=== PATIENT | female | born 1945 | race Hispanic/Latino ===

== ENCOUNTER 2016-08-24 17:42 | Emergency (ER) | payer MEDICARE, OTHER ==
[~2016-08-24] VITALS: Ht 175.3 cm; Wt 72.6 kg
[2016-08-24 17:40] VITALS: BP 136/76
[~2016-08-24 17:42] MED LIST: AMLODIPINE BESYL5 MG PO; ASPIRIN-LOW81 MG PO; DOCUSATE SODIU100 MG PO; DOCUSIL PO; LORAZEPAM1 MG PO; PRILOSEC20 MG PO; RESTORIL7.5 MG PO; RISPERDAL2 MG PO
[2016-08-24 19:02] LABS: APPEARANCE,URINE CLEAR; KETONES,URINE NEGATIVE (NEGATIVE); LEUKOCYTE ESTERASE ,URINE NEGATIVE (NEGATIVE); NITRITE,URINE NEGATIVE (NEGATIVE); PH,URINE 7 (4.5-8.0); PROTEIN,URINE NEGATIVE (NEGATIVE); UROBILINOGEN,URINE NORMAL MG/DL (0.0-1.0)
[2016-08-24 19:13] LABS: BASOPHILS % (AUTO) 0.9 % (0.0-2.0); EOSINOPHILS % (AUTO) 1.7 % (0.0-3.0); MEAN CORPUSCULAR HEMOGLOBIN 27.8 PG (27.0-31.0); MEAN CORPUSCULAR HGB CONC 33.2 G/DL (32.0-36.0); MEAN CORPUSCULAR VOLUME 84 FL (80-99); MEAN PLATELET VOLUME 7.3 FL (6.5-10.1); MONOCYTES % (AUTO) 8.6 % (1.0-10.0); NEUTROPHILS % (AUTO) 67.9 % (45.0-75.0); PLATELET COUNT 224 K/UL (150-450); RED BLOOD COUNT 4.72 M/UL (4.20-5.40); RED CELL DISTRIBUTION WIDTH 12.1 % (11.6-14.8); WHITE BLOOD COUNT 6.5 K/UL (4.8-10.8)
[2016-08-24 19:36] LABS: ALBUMIN/GLOBULIN RATIO 0.9 (1.0-2.7); CALCIUM 8.9 mg/dL (8.6-10.2); CREATININE 1.1 mg/dL (0.5-0.9); GLOMERULAR FILTRATION RATE 49.1 mL/min (>60); TOTAL PROTEIN 7.5 g/dL (6.6-8.7)
[2016-08-24 21:19] VITALS: BP 129/78
[2016-08-24 21:25] VITALS: BP 129/78
--- NOTE | 2016-08-25 16:08 | Diagnostic Imaging Report ---
Indication:Abdominal pain Technique: Grayscale and duplex Doppler imaging of the pelvis performed. Comparison: None Findings: Clinically we understand there is a uterine prolapse. Endovaginal scan was not done as the patient cannot consent. Patient is confused and has altered level of consciousness. Neither ovary is well demonstrated but grossly unremarkable. The endometrium is measured is about 7 mm in thickness. Uterus measures 8 x 6 x 4.4 cm. Right ovary 2.7 x 2.0 0.7 cm. Left ovary 1.5 x 2.9 x 1.0 cm. Impression: Limited evaluation. Uterine prolapse diagnosed clinically.
--- NOTE | 2016-08-26 11:58 | Emergency Room Report ---
History of Present Illness General Chief Complaint: Vaginal Source: EMS (RAIMUNDO ENGEL P.A.) Present Illness HPI The pt is a 70 yo F BIBA from [facility] for vaginal cyst evaluation. The pt offers a limited history due to psychiatric history but states she has noticed bleeding and pain to the vaginal area. Pain described as a 10/10 dull ache and does not radiate. No known provoking or relieving factors. Pt is post-menopausal. Pt denies other symptoms including N, V, F, chills, dysuria, flank pain, abd pain, dizziness, CP, SOB (RAIMUNDO ENGEL P.A.) Allergies: Coded Allergies: No Known Allergies (Unverified , 08/01/12) Patient History Past Medical History: see triage record Pertinent Family History: none Last Menstrual Period: UNK Reviewed Nursing Documentation: PMH: Agreed, PSxH: Agreed (RAIMUNDO ENGEL P.A.) Nursing Documentation-PMH Hx Cardiac Problems: Yes - HYPERLIPIDEMIA Hx Hypertension: Yes Hx Pacemaker: No - HYPERLIPIDEMIA Hx Asthma: No Hx COPD: No Hx Diabetes: No Hx Cancer: No Hx Gastrointestinal Problems: Yes - GERD Hx Dialysis: No Hx Neurological Problems: Yes - NEUROPATHY Hx Cerebrovascular Accident: No Hx Seizures: No Hx Peripheral Neuropathy: Yes (RAIMUNDO ENGEL P.A.) Review of Systems All Other Systems: negative except mentioned in HPI (RAIMUNDO ENGEL P.A.) Physical Exam Vital Signs Date Time Temp Pulse Resp B/P Pulse Ox O2 Delivery O2 Flow Rate FiO2 08/24/16 17:33 77 18 136/76 95 Room Air 08/24/16 17:40 97.8 Sp02 EP Interpretation: reviewed, normal General Appearance: no apparent distress, alert, GCS 15, non-toxic Head: normocephalic, atraumatic Eyes: bilateral eye PERRL, bilateral eye normal inspection ENT: hearing grossly normal Neck: full range of motion, supple/symm/no masses Respiratory: chest non-tender, lungs clear, normal breath sounds, speaking full sentences Cardiovascular #1: regular rate, rhythm, no edema Gastrointestinal: normal bowel sounds, non tender, soft, non-distended, no guarding, no rebound Genitourinary: no CVA tenderness, other - large uterine prolapse Musculoskeletal: back normal, gait/station normal, normal range of motion, non- tender Neurologic: alert, responsive, sensory intact, normal gait, other - tardive dyskinesia Skin: normal color, no rash, warm/dry, well hydrated Lymphatic: no adenopathy (RAIMUNDO ENGEL) Medical Decision Making PA Attestation Dr. De La O is my supervising physician. Patient management was discussed with my supervising physician (RAIMUNDO ENGEL) Medicare Attestation The history of Peyton Babb has been reviewed and management options for her have been examined and discussed by Raffaele De La O. I have personally examined and interviewed the patient. (RAFFAELE DE LA O M.D.) Diagnostic Impression: Primary Impression: Uterine prolapse ER Course The pt is a 70 yo F BIBA from [facility] for vaginal cyst evaluation. DDx: UTI, abscess, vaginitis, pelvic organ prolapse PE: vitals WNL. NAD : There is a large uterine prolapse. Easily reducible. ABd is soft and non tender. No guarding. Normal BS No CVA tenderness Labs: no leukocyotis. No urinary signs of infection. No occult blood. Abd/Pelvic US: abd US unremarkable. Pelvic US limited due to prolapsed uterus. Dr. De La O has spoken with the patient's PMD and agrees with plan. Dr. De La O has also spoken with Dr. Buchanan (OBGYN). Pt will be sent back to [facility] in stable condition. Labs Test 08/24/16 18:34 White Blood Count 6.5 K/UL (4.8-10.8) Red Blood Count 4.72 M/UL (4.20-5.40) Hemoglobin 13.1 G/DL (12.0-16.0) Hematocrit 39.6 % (37.0-47.0) Mean Corpuscular Volume 84 FL (80-99) Mean Corpuscular Hemoglobin 27.8 PG (27.0-31.0) Mean Corpuscular Hemoglobin Concent 33.2 G/DL (32.0-36.0) Red Cell Distribution Width 12.1 % (11.6-14.8) Platelet Count 224 K/UL (150-450) Mean Platelet Volume 7.3 FL (6.5-10.1) Neutrophils (%) (Auto) 67.9 % (45.0-75.0) Lymphocytes (%) (Auto) 21.0 % (20.0-45.0) Monocytes (%) (Auto) 8.6 % (1.0-10.0) Eosinophils (%) (Auto) 1.7 % (0.0-3.0) Basophils (%) (Auto) 0.9 % (0.0-2.0) Prothrombin Time 10.0 SEC (9.30-11.50) Prothromb Time International Ratio 1.0 (0.9-1.1) Activated Partial Thromboplast Time 25 SEC (23-33) Urine Color Pale yellow Urine Appearance Clear Urine pH 7 (4.5-8.0) Urine Specific [place] 1.005 (1.005-1.035) Urine Protein Negative (NEGATIVE) Urine Glucose (UA) Negative (NEGATIVE) Urine Ketones Negative (NEGATIVE) Urine Occult Blood Negative (NEGATIVE) Urine Nitrite Negative (NEGATIVE) Urine Bilirubin Negative (NEGATIVE) Urine Urobilinogen Normal MG/DL (0.0-1.0) Urine Leukocyte Esterase Negative (NEGATIVE) Sodium Level 139 mEQ/L (135-145) Potassium Level 4.0 mEQ/L (3.4-4.9) Chloride Level 98 mEQ/L (98-107) Carbon Dioxide Level 25 mEQ/L (20-30) Anion Gap 16 (5-15) Blood Urea Nitrogen 12 mg/dL (7-23) Creatinine 1.1 mg/dL (0.5-0.9) Estimat Glomerular Filtration Rate 49.1 mL/min (>60) Glucose Level 155 mg/dL (74-106) Calcium Level 8.9 mg/dL (8.6-10.2) Total Bilirubin 0.4 mg/dL (0.0-1.2) Aspartate Amino Transf (AST/SGOT) 33 U/L (5-40) Alanine Aminotransferase (ALT/SGPT) 31 U/L (3-33) Alkaline Phosphatase 127 U/L (35-104) Total Protein 7.5 g/dL (6.6-8.7) Albumin 3.7 g/dL (3.5-5.2) Globulin 3.8 g/dL Albumin/Globulin Ratio 0.9 (1.0-2.7) Lipase 36 U/L (< 60) Lab Results Impression CBC: no leukocytosis. No anemia. CMP: Unremarkable. UA: No RBCs or occult blood. No signs of infection (RAIMUNDO ENGEL) CT/MRI/US Diagnostic Results CT/MRI/US Diagnostic Results : Imaging Test Ordered: Abd/Pelvic US Impression Clinically we understand there is a uterine prolapse. Endovaginal scan was not done as the patient cannot consent. Patient is confused and has altered level of consciousness. Neither ovary is well demonstrated but grossly unremarkable. The endometrium is measured is about 7 mm in thickness. Uterus measures 8 x 6 x 4.4 cm. Right ovary 2.7 x 2.0 0.7 cm. Left ovary 1.5 x 2.9 x 1.0 cm. (RAIMUNDO ENGEL) Last Vital Signs Date Time Temp Pulse Resp B/P Pulse Ox O2 Delivery O2 Flow Rate FiO2 08/24/16 21:25 97.8 97 18 129/78 99 Room Air Status: improved (RAIMUNDO ENGEL) Disposition: [facility] SN[facility] Condition: Stable Referrals: Isaiah Vasquez MD (PCP) Patient Instructions: Pelvic Organ Prolapse Additional Instructions: I discussed my findings with the patient. All questions and concerns have been answered. Treatment and medication compliance have been addressed. I advised the patient that they need to follow up with PMD in 3-5 days. Return to ED if symptoms worsen, new symptoms arise, or if needed for any reason. Patient verbalized understanding of discharge instructions. RAIMUNDO ENEGL Aug 26, 2016 11:58 RAFFAELE DE LA O M.D. Aug 28, 2016 19:03
== END 2016-08-24 21:25 ==
LOC: EDBD 17:42 → EMR 19:45
DX: N81.4 Uterovaginal prolapse, unspecified (principal); I10 Essential (primary) hypertension; E78.5 Hyperlipidemia, unspecified; K21.9 Gastro-esophageal reflux disease without esophagitis; G62.9 Polyneuropathy, unspecified
CPT/HCPCS: 36415; 76857; 80053; 81003; 83690; 85025; 85610; 85730; 99284

== ENCOUNTER 2018-10-28 12:04 | Inpatient (IN) | payer MEDICARE, OTHER ==
[~2018-10-28] VITALS: Ht 165.1 cm; Wt 90.7 kg
--- NOTE | 2018-10-28 12:24 | Emergency Room Report ---
History of Present Illness General Chief Complaint: Female Urogenital Problems Source: Medical Record, EMS Present Illness HPI Patient presents with complaints of increased discomfort in the vaginal area Patient is reported to have a previous prolapsed uterus and appears to be worsening patient herself has some underlying dementia is unable to provide full specific history otherwise denies any chest pain or short of breath denies any vomiting or diarrhea Allergies: Coded Allergies: No Known Allergies (Unverified , 08/01/12) Patient History Past Medical History: see triage record Pertinent Family History: none Last Menstrual Period: Unknown Now: No Reviewed Nursing Documentation: PMH: Agreed; PSxH: Agreed Nursing Documentation-PMH Hx Cardiac Problems: Yes - HYPERLIPIDEMIA Hx Hypertension: Yes Hx Pacemaker: No - HYPERLIPIDEMIA Hx Asthma: No Hx COPD: No Hx Diabetes: No Hx Cancer: No Hx Gastrointestinal Problems: Yes - GERD Hx Dialysis: No Hx Neurological Problems: Yes - NEUROPATHY Hx Cerebrovascular Accident: No Hx Seizures: No Hx Peripheral Neuropathy: Yes Review of Systems All Other Systems: negative except mentioned in HPI Physical Exam Vital Signs Date Time Temp Pulse Resp B/P (MAP) Pulse Ox O2 Delivery O2 Flow Rate FiO2 10/28/18 12:01 97.3 84 18 96 Nasal Cannula 2.0 Sp02 EP Interpretation: reviewed, normal General Appearance: well appearing, no apparent distress Head: normocephalic, atraumatic Eyes: bilateral eye PERRL, bilateral eye EOMI ENT: normal pharynx Neck: supple Respiratory: lungs clear, no respiratory distress, no retraction Cardiovascular #1: regular rate, rhythm Gastrointestinal: non tender, soft Genitourinary: other - Almost full prolapse of the uterus Musculoskeletal: other - Moves upper extremity without focal deficiet Neurologic: responsive Skin: normal color, no rash Lymphatic: no adenopathy Medical Decision Making Diagnostic Impression: Primary Impression: Uterine prolapse Additional Impression: Intractable pain ER Course Given the history and presentation patient has blood work initiated Ultrasound has not been ordered as the patient has clear signs of prolapse Patient also appeared uncomfortable and required acute intervention with pain medication in discussion with the patient's primary physician she will have further inpatient care and gynecology consultation Labs Test 10/28/18 12:30 White Blood Count 5.5 K/UL (4.8-10.8) Red Blood Count 4.69 M/UL (4.20-5.40) Hemoglobin 12.9 G/DL (12.0-16.0) Hematocrit 39.5 % (37.0-47.0) Mean Corpuscular Volume 84 FL (80-99) Mean Corpuscular Hemoglobin 27.6 PG (27.0-31.0) Mean Corpuscular Hemoglobin Concent 32.7 G/DL (32.0-36.0) Red Cell Distribution Width 12.8 % (11.6-14.8) Platelet Count 186 K/UL (150-450) Mean Platelet Volume 7.9 FL (6.5-10.1) Neutrophils (%) (Auto) 58.3 % (45.0-75.0) Lymphocytes (%) (Auto) 32.8 % (20.0-45.0) Monocytes (%) (Auto) 6.2 % (1.0-10.0) Eosinophils (%) (Auto) 1.7 % (0.0-3.0) Basophils (%) (Auto) 0.9 % (0.0-2.0) Prothrombin Time 10.1 SEC (9.30-11.50) Prothromb Time International Ratio 1.0 (0.9-1.1) Activated Partial Thromboplast Time 25 SEC (23-33) Sodium Level 143 MMOL/L (136-145) Potassium Level 4.0 MMOL/L (3.5-5.1) Chloride Level 107 MMOL/L (98-107) Carbon Dioxide Level 31 MMOL/L (21-32) Anion Gap 5 mmol/L (5-15) Blood Urea Nitrogen 13 mg/dL (7-18) Creatinine 1.3 MG/DL (0.55-1.30) Estimat Glomerular Filtration Rate mL/min (>60) Glucose Level 107 MG/DL (74-106) Calcium Level 8.7 MG/DL (8.5-10.1) Last Vital Signs Date Time Temp Pulse Resp B/P (MAP) Pulse Ox O2 Delivery O2 Flow Rate FiO2 10/28/18 12:01 97.3 84 18 96 Nasal Cannula 2.0 Status: improved Disposition: ADMITTED INPATIENT Condition: Serious Isaiah Koenig DO October 28, 2018 12:24
[2018-10-28] MEDS ORDERED: HYDROcodone/Acetamin 5/325 tab ORAL ONE (12:30)
[2018-10-28 12:35] VITALS: BP 110/78
--- NOTE | 2018-10-28 12:40 | NUR ---
Note undone in ED - 10/28/18 at 1523 by PINKY ED Nurse Note: Patient brought in to ER by ambulance from [facility] due to uterine prolapse. pt is awake and makeing frequent movement but unable to carry conversation. pt is making noise but not understandable. pt follows commands. pt agitated and restless. skin clean and intact. pt is on 2L/min via N/C prior to arrival. Uterine is about two fists size and outside and visible without bleeding. Addendum: 10/28/18 at 1522 by PINKY Amendment undone in ED - 10/28/18 at 1523 by PINKY ED Nurse Note: Patient brought in to ER by ambulance from [facility] due to uterine prolapse. pt is awake and makeing frequent movement but unable to carry conversation. pt is making noise but not understandable. pt follows commands. pt agitated and restless. skin clean and intact. pt is on 2L/min via N/C prior to arrival. Uterine is about two fists size and outside and visible without bleeding. Addendum: 10/28/18 at 1523 by PINKY Amendment undone in EDM - 10/28/18 at 1523 by PINKY ED Nurse Note: Patient brought in to ER by ambulance from [facility] due to uterine prolapse. pt is awake and makeing frequent movement but unable to carry conversation. pt is making noise but not understandable. pt follows commands. pt agitated and restless. skin clean and intact. pt is on 2L/min via N/C prior to arrival. Uterine is about two fists size and outside and visible without bleeding.
--- NOTE | 2018-10-28 12:50 | NUR ---
ED Nurse Note: Called to give report to 3rd floor MS unit. the room has been changed to 4E. will call 4E to give report.
[2018-10-28 12:53] LABS: BASOPHILS % (AUTO) 0.9 % (0.0-2.0); EOSINOPHILS % (AUTO) 1.7 % (0.0-3.0); HEMATOCRIT 39.5 % (37.0-47.0); HEMOGLOBIN 12.9 G/DL (12.0-16.0); LYMPHOCYTES % (AUTO) 32.8 % (20.0-45.0); MEAN CORPUSCULAR VOLUME 84 FL (80-99); MONOCYTES % (AUTO) 6.2 % (1.0-10.0); NEUTROPHILS % (AUTO) 58.3 % (45.0-75.0); PLATELET COUNT 186 K/UL (150-450); RED BLOOD COUNT 4.69 M/UL (4.20-5.40); RED CELL DISTRIBUTION WIDTH 12.8 % (11.6-14.8); WHITE BLOOD COUNT 5.5 K/UL (4.8-10.8)
[2018-10-28 12:59] LABS: ANION GAP 5 mmol/L (5-15); BLOOD UREA NITROGEN 13 mg/dL (7-18); CALCIUM 8.7 MG/DL (8.5-10.1); CARBON DIOXIDE 31 MMOL/L (21-32); CHLORIDE 107 MMOL/L (98-107); CREATININE 1.3 MG/DL (0.55-1.30); SODIUM 143 MMOL/L (136-145)
--- NOTE | 2018-10-28 13:00 | NUR ---
ED Nurse Note: called 4E to give report. they have not been informed. per Natalia, they will find out and call me back.
--- NOTE | 2018-10-28 13:19 | NUR ---
ED Nurse Note: Per ANABELLE Mcallister in MS unit the admitting nurse is not available at this moment. they will call me back.
[2018-10-28] MEDS ORDERED: QUETIAPINE FUM400 MG ORAL (13:26)
[2018-10-28] MEDS ORDERED: MACRODANTIN100 MG ORAL (13:26)
[2018-10-28] MEDS ORDERED: GABAPENTIN100 MG ORAL (13:26)
[2018-10-28] MEDS ORDERED: CRESTOR10 M1 ORAL (13:26)
[2018-10-28] MEDS ORDERED: ECONAZOLE NITRA30 GM TP (13:26)
[2018-10-28] MEDS ORDERED: MYRBETRIQ50 MG PO (13:26)
[2018-10-28] MEDS ORDERED: OLANZAPINE ODT10 MG PO (13:26)
[2018-10-28 13:31] VITALS: BP 137/69
--- NOTE | 2018-10-28 13:31 | NUR ---
ED Nurse Note: Removed NC and pt is saturating 98% in room air.
--- NOTE | 2018-10-28 13:39 | NUR ---
ED Nurse Note: Report given to ANABELLE Fisher. pt will be transferred after doctor to doctor report done.
--- NOTE | 2018-10-28 13:55 | NUR ---
ED Nurse Note: pt stable and transferred to MS unit by 1 geodetic technician.
[2018-10-28 13:57] VITALS: BP 156/95
--- NOTE | 2018-10-28 13:59 | NUR ---
NURSE NOTES: PATIENT RECEIVED A/A/O, GARBLED SPEECH. ABLE TO FOLLOW SIMPLE COMMANDS. SKIN IS INTACT. PERSONAL BELONGINGS REVIEWED AND S/T/D. UTERINE PROLAPSE IS VISIBLE BUT INTACT. ALL EXTREMITIES ARE MOBILE. WILL CALL PMD FOR ADMISSION ORDERS. KEEP BED IN THE LOWEST POSITION. SIDERAILS ARE UP AND BED ALARM ON AND LOCKED @ ALL TIMES. ADMISSION PROFILE RENDERED. WILL CONT TO MONITOR.
[2018-10-28] MEDS ORDERED: LORazepam 1mg tab ORAL PRN (14:30)
[2018-10-28 16:00] VITALS: BP 126/68
--- NOTE | 2018-10-28 16:04 | Consultation ---
History of Present Illness General Date patient seen: October 28, 2018 Reason for Hospitalization: Female Urogenital Problems Present Illness HPI This is a 72-year-old female with multiple medical comorbidities who presented with abdomen pain pelvic pain and identified in the emergency room to have a prolapsed uterus. Patient admitted for care and management which time surgery was called to evaluate and assist with care. Patient seen, patient divided, chart reviewed. With nursing staff the prolapsed uterus was reduced. Allergies: Coded Allergies: No Known Allergies (Unverified , 08/01/12) Medication History Scheduled Amlodipine Besylate* (Amlodipine Besylate*), 5 MG PO DAILY, (Reported) Aspirin (Aspirin EC), 81 MG PO DAILY, (Reported) Docusate Sodium* (Docusate Sodium*), 100 MG PO BID, (Reported) Econazole Nitrate (Econazole Nitrate), 30 GM TP BID, (Reported) Gabapentin* (Gabapentin*), 100 MG ORAL BID, (Reported) Mirabegron (Myrbetriq), 50 MG PO DAILY, (Reported) Nitrofurantoin Macrocrystal (Macrodantin), 100 MG ORAL BID, (Reported) Olanzapine (Olanzapine Odt), 10 MG PO BID, (Reported) Omeprazole (Prilosec), 20 MG PO DAILY, (Reported) Quetiapine Fumarate* (Quetiapine Fumarate*), 400 MG ORAL BEDTIME, (Reported) Risperidone* (Risperdal*), 6 MG PO QHS, (Reported) Rosuvastatin Calcium (Crestor), 5 MG ORAL DAILY, (Reported) Scheduled PRN Lorazepam* (Lorazepam*), 1 MG PO Q6HR PRN, (Reported) Temazepam* (Restoril*), 30 MG PO QHS PRN, (Reported) Patient History Limited by: medical condition History Provided By: Patient, Medical Record, PMD Healthcare decision maker Resuscitation status Full Code Advanced Directive on File Past Medical/Surgical History Past Medical/Surgical History: (1) Intractable pain (2) Uterine prolapse Review of Systems Review of Symptoms General ROS: no weight loss or fever Psychological ROS: no depression or mood changes, no memory loss Ophthalmic ROS: no visual changes or eye irritation ENT ROS: no nasal congestion, hearing loss, dizziness Allergy and Immunology ROS: no allergic symptoms or urticaria Hematological and Lymphatic ROS: no swollen glands, unusual bleeding or bruising Endocrine ROS: no polyuria, polydipsia, weight changes, temperature intolerance Respiratory ROS: no cough, shortness of breath, or wheezing Cardiovascular ROS: no chest pain or dyspnea on exertion Gastrointestinal ROS: denies abdominal pain, no bright red blood in stool. Musculoskeletal ROS: no myalgias or arthralgias Neurological ROS: no TIA or stroke symptoms Dermatological ROS: no new or changing skin lesions, rashes or pruritis Physical Exam Physical Exam General appearance: alert, cooperative, no distress, appears stated age Head: Normocephalic, without obvious abnormality, atraumatic Eyes: conjunctivae/corneas clear. PERRL, EOM's intact. Fundi benign Throat: Lips, mucosa, and tongue normal. Teeth and gums normal Neck: supple, symmetrical, trachea midline, no adenopathy, thyroid: not enlarged, symmetric, no tenderness/mass/nodules, no carotid bruit and no JVD Lungs: clear to auscultation bilaterally Heart: regular rate and rhythm, S1, S2 normal, no murmur, click, rub or gallop Abdomen: soft, non-tender. Bowel sounds normal. No masses, no organomegaly Extremities: extremities normal, atraumatic, no cyanosis or edema Pulses: 2+ and symmetric Skin: Skin color, texture, turgor normal. No rashes or lesions Neurologic: Grossly normal Large near full prolapse of uterus with dry wall noted and external OS seen. able to safely reduce at bedside. Last 24 Hour Vital Signs Date Time Temp Pulse Resp B/P (MAP) Pulse Ox O2 Delivery O2 Flow Rate FiO2 10/28/18 13:57 97.5 92 18 156/95 (115) 92 10/28/18 13:57 Room Air 10/28/18 13:55 98.5 94 18 110/74 98 Room Air 10/28/18 13:31 98.3 86 19 137/69 97 Room Air 10/28/18 12:57 98.5 10/28/18 12:35 98.5 91 16 110/78 98 Nasal Cannula 2.0 10/28/18 12:01 97.3 84 18 96 Nasal Cannula 2.0 Laboratory Tests Test 10/28/18 12:30 White Blood Count 5.5 K/UL (4.8-10.8) Red Blood Count 4.69 M/UL (4.20-5.40) Hemoglobin 12.9 G/DL (12.0-16.0) Hematocrit 39.5 % (37.0-47.0) Mean Corpuscular Volume 84 FL (80-99) Mean Corpuscular Hemoglobin 27.6 PG (27.0-31.0) Mean Corpuscular Hemoglobin Concent 32.7 G/DL (32.0-36.0) Red Cell Distribution Width 12.8 % (11.6-14.8) Platelet Count 186 K/UL (150-450) Mean Platelet Volume 7.9 FL (6.5-10.1) Neutrophils (%) (Auto) 58.3 % (45.0-75.0) Lymphocytes (%) (Auto) 32.8 % (20.0-45.0) Monocytes (%) (Auto) 6.2 % (1.0-10.0) Eosinophils (%) (Auto) 1.7 % (0.0-3.0) Basophils (%) (Auto) 0.9 % (0.0-2.0) Prothrombin Time 10.1 SEC (9.30-11.50) Prothromb Time International Ratio 1.0 (0.9-1.1) Activated Partial Thromboplast Time 25 SEC (23-33) Sodium Level 143 MMOL/L (136-145) Potassium Level 4.0 MMOL/L (3.5-5.1) Chloride Level 107 MMOL/L (98-107) Carbon Dioxide Level 31 MMOL/L (21-32) Anion Gap 5 mmol/L (5-15) Blood Urea Nitrogen 13 mg/dL (7-18) Creatinine 1.3 MG/DL (0.55-1.30) Estimat Glomerular Filtration Rate mL/min (>60) Glucose Level 107 MG/DL (74-106) H Calcium Level 8.7 MG/DL (8.5-10.1) Microbiology Date/Time Source Procedure Growth Status 10/28/18 12:20 Rectum Received Height (Feet): 5 Height (Inches): 5.00 Weight (Pounds): 200 Medications Current Medications Medications (Trade) Dose Ordered Sig/Joaquin Route PRN Reason Start Time Stop Time Status Last Admin Dose Admin Acetaminophen (Tylenol) 650 mg Q4H PRN ORAL Mild Pain/Temp > 100.5 10/28/18 14:30 11/27/18 14:29 Amlodipine Besylate (Norvasc) 5 mg DAILY ORAL 10/29/18 09:00 11/28/18 08:59 Aspirin (Ecotrin) 81 mg DAILY ORAL 10/29/18 09:00 11/28/18 08:59 Docusate Sodium (Colace) 100 mg BID ORAL 10/29/18 09:00 11/28/18 08:59 Econazole Nitrate (Spectazole) 1 applic BID TOPIC 10/28/18 18:00 11/27/18 17:59 Gabapentin (Neurontin) 100 mg BID ORAL 10/28/18 18:00 11/27/18 17:59 Lorazepam (Ativan) 1 mg Q6H PRN ORAL ANXIETY 10/28/18 14:30 11/04/18 14:29 Olanzapine (ZyPREXA Zydis) 10 mg BID ORAL 10/28/18 18:00 11/27/18 17:59 Quetiapine Fumarate (SEROquel) 400 mg BEDTIME ORAL 10/28/18 21:00 11/27/18 20:59 Risperidone (RisperDAL) 6 mg QHS ORAL 10/28/18 21:00 11/27/18 20:59 Temazepam (Restoril) 30 mg QHS PRN ORAL Insomnia 10/28/18 14:30 11/04/18 14:29 Assessment/Plan Problem List: (1) Intractable pain Assessment & Plan: Pain mainly related to discomfort in the pelvis and abdomen from prolapse. Once prolapse was reduced patient did state that she felt better. Currently no nausea or vomiting. Labs identified. Exam stable. ICD Codes: R52 - Pain, unspecified SNOMED: 21822408 (2) Uterine prolapse Assessment & Plan: Uterine prolapse status post reduction at the bedside without complication. Patient symptoms improved since. Nursing staff instructed on care plan. Will reduce as necessary. Patient had very weak pelvic floor muscles and will likely prolapse when ambulatory or with minimal exertion on abdominal core muscles. Seems to be chronic and ongoing for some time now. Will plan for outpatient [facility] evaluation. Diet as tolerated. Orders placed. Thank you ICD Codes: N81.4 - Uterovaginal prolapse, unspecified SNOMED: 35707525, [id number] Marcus Vincent October 28, 2018 16:04
[2018-10-28] MEDS: ZyPREXA Zydis 10mg tab ORAL SCH (17:22)
[2018-10-28] MEDS: Econazole 1% Cream 15gm TOPIC SCH (17:22)
--- NOTE | 2018-10-28 19:04 | NUR ---
HAND-OFF: Report given to ERIKA.
[2018-10-28 20:00] VITALS: BP 100/58
--- NOTE | 2018-10-28 20:00 | NUR ---
NURSE NOTES: PATIENT IN BED, SLEEPING. ON RA, NO SOB, NO ACUTE DISTRESS, NO S/SX OF PAIN. IV ON RH INTACT, PATENT. BED IN LOWEST POSITION, LOCKED, ALARMS ON. CALL LIGHT IN REACH.
[2018-10-28] MEDS: QUEtiapine 200mg tab ORAL SCH (20:52)
[2018-10-29] VITALS: BP 97/57
[2018-10-29 04:00] VITALS: BP 120/81
[2018-10-29 06:58] LABS: BASOPHILS % (AUTO) 1.2 % (0.0-2.0); EOSINOPHILS % (AUTO) 1.7 % (0.0-3.0); HEMATOCRIT 39.2 % (37.0-47.0); LYMPHOCYTES % (AUTO) 31.4 % (20.0-45.0); MEAN CORPUSCULAR VOLUME 84 FL (80-99); MONOCYTES % (AUTO) 6.8 % (1.0-10.0); NEUTROPHILS % (AUTO) 58.9 % (45.0-75.0); PLATELET COUNT 176 K/UL (150-450); RED BLOOD COUNT 4.66 M/UL (4.20-5.40); RED CELL DISTRIBUTION WIDTH 13.2 % (11.6-14.8); WHITE BLOOD COUNT 4.9 K/UL (4.8-10.8)
[2018-10-29 07:04] LABS: ALANINE AMINOTRANSFERASE 23 U/L (12-78); ALBUMIN 3.5 G/DL (3.4-5.0); ALBUMIN/GLOBULIN RATIO 0.8 (1.0-2.7); ALKALINE PHOSPHATASE 126 U/L (46-116); ANION GAP 8 mmol/L (5-15); ASPARTATE AMINO TRANSFERASE 21 U/L (15-37); BILIRUBIN,TOTAL 0.4 MG/DL (0.2-1.0); BLOOD UREA NITROGEN 14 mg/dL (7-18); CALCIUM 9.2 MG/DL (8.5-10.1); CARBON DIOXIDE 29 MMOL/L (21-32); CHLORIDE 107 MMOL/L (98-107); CREATININE 1.3 MG/DL (0.55-1.30); POTASSIUM 3.6 MMOL/L (3.5-5.1); SODIUM 144 MMOL/L (136-145)
--- NOTE | 2018-10-29 07:15 | NUR ---
HAND-OFF: Report given to Jessica EASLEY.
--- NOTE | 2018-10-29 07:30 | NUR ---
NURSE NOTES: PATIENT RECEIVED A/A/O,ABLE TO FOLLOW COMMANDS. GARBLED SPEECH. ABLE TO FOLLOW SIMPLE COMMANDS. SKIN IS INTACT. PERSONAL BELONGINGS REVIEWED AND S/T/D. UTERINE PROLAPSE IS VISIBLE BUT INTACT. ALL EXTREMITIES ARE MOBILE. KEEP BED IN THE LOWEST POSITION. SIDERAILS ARE UP AND BED ALARM ON AND LOCKED @ ALL TIMES. CALL LIGHT IS WITHIN REACH. WILL CONT TO MONITOR.
[2018-10-29 07:59] VITALS: BP 151/90
[2018-10-29] MEDS: Aspirin EC 81mg tab ORAL SCH (08:40)
[2018-10-29] MEDS: Docusate 100mg cap ORAL SCH ×2 (08:40→17:30)
[2018-10-29] MEDS: ZyPREXA Zydis 10mg tab ORAL SCH ×2 (08:40→17:30)
[2018-10-29] MEDS: Econazole 1% Cream 15gm TOPIC SCH ×2 (08:40→17:30)
[2018-10-29 12:00] VITALS: BP 121/74
--- NOTE | 2018-10-29 12:40 | NUR ---
CASE MANAGEMENT: INITIAL REVIEW 72 YO F AMELIA FROM [facility] CC: VAGINAL MASS PMHx: HLD. HTN. GERD. SI:COMPLETE UTERINE PROLAPSE. T 97.3 HR 84 RR 18 B/P 110/78 SATS 96% ON 2L/NC GLU 107 IS:NORCO PO X1 PATIENT ADMITTED TO MED/SURG 10/28/2018 @ 1252 DCP: PATIENT TO BE DISCHARGED TO SNF ONCE MEDICALLY CLEARED. PLAN OF CARE: PER SURGERY>> OUTPT RESERVATIONS AGENT CONSULT Addendum: 10/29/18 at 1245 by Amanda Carter PER SURGERY CONTINUED... "Will reduce as necessary."
[2018-10-29 16:00] VITALS: BP 155/93
--- NOTE | 2018-10-29 18:22 | Surgery Progress Note ---
Surgery Progress Note Subjective Additional Comments uterus prolapsed again this AM and was reduced by myself and nurse this afternoon. otherwise well and unchanged. Objective Last 24 Hour Vital Signs Date Time Temp Pulse Resp B/P (MAP) Pulse Ox O2 Delivery O2 Flow Rate FiO2 10/29/18 16:00 98.0 93 18 155/93 (113) 98 10/29/18 12:00 98.5 92 18 121/74 (90) 93 10/29/18 12:00 98.5 92 18 121/74 (90) 93 10/29/18 08:40 102 151/90 10/29/18 08:37 Room Air 10/29/18 07:59 98.5 102 16 151/90 (110) 98 10/29/18 04:00 97.9 74 16 120/81 (94) 99 10/29/18 00:00 98.7 75 16 97/57 (70) 95 10/28/18 21:00 Room Air 10/28/18 20:00 99.1 77 17 100/58 (72) 95 I&O Intake and Output 10/28/18 10/29/18 19:00 07:00 Intake Total 240 ml 100 ml Balance 240 ml 100 ml Intake Oral 240 ml 100 ml # Voids 2 1 Drains: none Cardiovascular: RSR Respiratory: clear Abdomen: soft, flat, non-tender, present bowel sounds, non-distended Extremities: no tenderness, no cyanosis Laboratory Tests Test 10/29/18 06:15 White Blood Count 4.9 K/UL (4.8-10.8) Red Blood Count 4.66 M/UL (4.20-5.40) Hemoglobin 13.0 G/DL (12.0-16.0) Hematocrit 39.2 % (37.0-47.0) Mean Corpuscular Volume 84 FL (80-99) Mean Corpuscular Hemoglobin 27.8 PG (27.0-31.0) Mean Corpuscular Hemoglobin Concent 33.0 G/DL (32.0-36.0) Red Cell Distribution Width 13.2 % (11.6-14.8) Platelet Count 176 K/UL (150-450) Mean Platelet Volume 8.1 FL (6.5-10.1) Neutrophils (%) (Auto) 58.9 % (45.0-75.0) Lymphocytes (%) (Auto) 31.4 % (20.0-45.0) Monocytes (%) (Auto) 6.8 % (1.0-10.0) Eosinophils (%) (Auto) 1.7 % (0.0-3.0) Basophils (%) (Auto) 1.2 % (0.0-2.0) Sodium Level 144 MMOL/L (136-145) Potassium Level 3.6 MMOL/L (3.5-5.1) Chloride Level 107 MMOL/L (98-107) Carbon Dioxide Level 29 MMOL/L (21-32) Anion Gap 8 mmol/L (5-15) Blood Urea Nitrogen 14 mg/dL (7-18) Creatinine 1.3 MG/DL (0.55-1.30) Estimat Glomerular Filtration Rate mL/min (>60) Glucose Level 117 MG/DL (74-106) H Calcium Level 9.2 MG/DL (8.5-10.1) Total Bilirubin 0.4 MG/DL (0.2-1.0) Aspartate Amino Transf (AST/SGOT) 21 U/L (15-37) Alanine Aminotransferase (ALT/SGPT) 23 U/L (12-78) Alkaline Phosphatase 126 U/L (46-116) H Total Protein 7.7 G/DL (6.4-8.2) Albumin 3.5 G/DL (3.4-5.0) Globulin 4.2 g/dL Albumin/Globulin Ratio 0.8 (1.0-2.7) L Plan Problems: (1) Intractable pain Assessment & Plan: Pain mainly related to discomfort in the pelvis and abdomen from prolapse. Once prolapse was reduced patient did state that she felt better. Currently no nausea or vomiting. Labs identified. Exam stable. (2) Uterine prolapse Assessment & Plan: Uterine prolapse status post reduction at the bedside without complication. Patient symptoms improved since. Nursing staff instructed on care plan. Will reduce as necessary. Patient had very weak pelvic floor muscles and will likely prolapse when ambulatory or with minimal exertion on abdominal core muscles. Seems to be chronic and ongoing for some time now. Will plan for outpatient CONVERTIBLE TOP INSTALLER evaluation. Diet as tolerated. Orders placed. Thank you Marcus Vincent October 29, 2018 18:22
--- NOTE | 2018-10-29 19:01 | NUR ---
HAND-OFF: Report given to Diana.
[2018-10-29 20:00] VITALS: BP 125/76
--- NOTE | 2018-10-29 20:00 | NUR ---
NURSE NOTES: PATIENT IN BED. ON RA, NO SOB, NO ACUTE DISTRESS, DENIES PAIN. LFA IV INTACT, PATENT. BED IN LOWEST POSITION, LOCKED, ALARMS ON. CALL LIGHT IN REACH.
[2018-10-29] MEDS: QUEtiapine 200mg tab ORAL SCH (20:51)
[2018-10-30] VITALS: BP 120/76
[2018-10-30 04:00] VITALS: BP 99/60
[2018-10-30 06:28] LABS: EOSINOPHILS % (AUTO) 1.4 % (0.0-3.0); HEMATOCRIT 36.2 % (37.0-47.0); HEMOGLOBIN 12.2 G/DL (12.0-16.0); LYMPHOCYTES % (AUTO) 26.4 % (20.0-45.0); MEAN CORPUSCULAR VOLUME 84 FL (80-99); MONOCYTES % (AUTO) 7.7 % (1.0-10.0); NEUTROPHILS % (AUTO) 63.4 % (45.0-75.0); PLATELET COUNT 174 K/UL (150-450); RED BLOOD COUNT 4.33 M/UL (4.20-5.40); RED CELL DISTRIBUTION WIDTH 13.1 % (11.6-14.8); WHITE BLOOD COUNT 6.6 K/UL (4.8-10.8)
[2018-10-30 06:51] LABS: ANION GAP 9 mmol/L (5-15); BLOOD UREA NITROGEN 22 mg/dL (7-18); CALCIUM 8.9 MG/DL (8.5-10.1); CARBON DIOXIDE 28 MMOL/L (21-32); CHLORIDE 103 MMOL/L (98-107); CREATININE 1.7 MG/DL (0.55-1.30); POTASSIUM 3.6 MMOL/L (3.5-5.1); SODIUM 140 MMOL/L (136-145)
--- NOTE | 2018-10-30 07:14 | NUR ---
HAND-OFF: Report given to Toshia AHN.
[2018-10-30 08:00] VITALS: BP 132/58
--- NOTE | 2018-10-30 08:29 | NUR ---
NURSE NOTES: received pt awake, confuse, pt told her name, but couldn't tell nurse reason why she's in hospital or her date of . ambulating in the hallway. Pt is soiled throughout her body, ALDAIR Palmer cleaned pt's whole body. Pt has a large uterine prolapse. Placed pt in bed, locked at the lowest position possible, call light within easy reach, siderails up x2. pt is on bilateral lower leg SCDs. Will continue to monitor patient and follow up witrh the plan of care.
[2018-10-30] MEDS: Aspirin EC 81mg tab ORAL SCH (09:51)
[2018-10-30] MEDS: Econazole 1% Cream 15gm TOPIC SCH ×2 (09:51→18:05)
[2018-10-30] MEDS: ZyPREXA Zydis 10mg tab ORAL SCH (09:51)
[2018-10-30] MEDS: Docusate 100mg cap ORAL SCH ×2 (09:51→18:05)
[2018-10-30 12:00] VITALS: BP 131/62
--- NOTE | 2018-10-30 14:15 | History and Physical Report ---
DATE OF ADMISSION: 10/28/2018 HISTORY OF PRESENT ILLNESS: The patient was admitted for uterine prolapse. The patient does have some dementia. The patient was consulted with Dr. Buchanan well as Dr. Marcus Vincent for uterine prolapse. The patient denies any nausea, vomiting, or diarrhea. 00:22. No fever or chills. No constipation. . PAST MEDICAL HISTORY: Organic brain syndrome, mood disorder, psychosis, GERD, fracture of the elbow, hyperlipidemia. PAST SURGICAL HISTORY: Repair of upper extremity fracture. ALLERGIES: 01:05. MEDICATIONS: Colace, aspirin, gabapentin, lorazepam, olanzapine, omeprazole, Seroquel, Crestor. FAMILY HISTORY: Noncontributory. SOCIAL HISTORY: Denies history of smoking, alcohol, or illicit drugs. REVIEW OF SYSTEMS: HEENT: Denies headaches. RESPIRATORY: Denies shortness of breath. Denies cough. CARDIOVASCULAR: Denies chest pain. Denies orthopnea. GASTROINTESTINAL: Denies nausea, vomiting, or diarrhea. EXTREMITIES: Does have 01:29 prolapse, chronic pain syndrome. CENTRAL NERVOUS SYSTEMS: Denies change in vision or speech pattern. PHYSICAL EXAMINATION: VITAL SIGNS: Temperature 97.9, pulse 74, blood pressure 121/81. HEENT: PERRLA. NECK: Supple. No lymphadenopathy. CHEST: Clear to auscultation. CARDIOVASCULAR: Regular rate and rhythm. No murmurs or extra sounds GASTROINTESTINAL: Soft, nontender, and 01:44 uterine prolapse. EXTREMITIES: Moves all four extremities. Reflexes equal on both sides. LABORATORY AND DIAGNOSTIC DATA: WBC 4.5, . Sodium 142, potassium 4, BUN 50, creatinine 1.3, and glucose of 107. ASSESSMENT AND PLAN: Uterine prolapse. I have asked Dr. Vincent and Dr. Buchanan to see the patient for the uterine prolapse. Monitor the patient closely. Isaiah Vasquez M.D. DR: Negro JOB#: [id number] CC:
[2018-10-30 16:00] VITALS: BP 127/69
--- NOTE | 2018-10-30 16:01 | Surgery Progress Note ---
Surgery Progress Note Subjective Additional Comments uterus continues to prolapse. out again today. reduced but once she stands becomes prolapsed again. no new complaints. Objective Last 24 Hour Vital Signs Date Time Temp Pulse Resp B/P (MAP) Pulse Ox O2 Delivery O2 Flow Rate FiO2 10/30/18 12:00 98.5 79 18 131/62 (85) 97 10/30/18 09:51 73 132/58 10/30/18 09:00 Room Air 10/30/18 08:00 98.9 73 19 132/58 (82) 96 10/30/18 04:00 98.7 87 18 99/60 (73) 96 10/30/18 00:00 97.5 99 18 120/76 (91) 96 10/29/18 21:00 Room Air 10/29/18 20:00 98.2 103 19 125/76 (92) 95 I&O Intake and Output 10/29/18 10/30/18 19:00 07:00 Intake Total 1640 ml 320 ml Balance 1640 ml 320 ml Intake Oral 1640 ml 320 ml # Voids 4 3 # Bowel Movements 1 Cardiovascular: RSR Respiratory: clear Abdomen: soft, non-tender, present bowel sounds, non-distended Extremities: no edema, no tenderness, no cyanosis Laboratory Tests Test 10/30/18 05:36 White Blood Count 6.6 K/UL (4.8-10.8) Red Blood Count 4.33 M/UL (4.20-5.40) Hemoglobin 12.2 G/DL (12.0-16.0) Hematocrit 36.2 % (37.0-47.0) L Mean Corpuscular Volume 84 FL (80-99) Mean Corpuscular Hemoglobin 28.2 PG (27.0-31.0) Mean Corpuscular Hemoglobin Concent 33.7 G/DL (32.0-36.0) Red Cell Distribution Width 13.1 % (11.6-14.8) Platelet Count 174 K/UL (150-450) Mean Platelet Volume 8.1 FL (6.5-10.1) Neutrophils (%) (Auto) 63.4 % (45.0-75.0) Lymphocytes (%) (Auto) 26.4 % (20.0-45.0) Monocytes (%) (Auto) 7.7 % (1.0-10.0) Eosinophils (%) (Auto) 1.4 % (0.0-3.0) Basophils (%) (Auto) 1.0 % (0.0-2.0) Prothrombin Time 10.6 SEC (9.30-11.50) Prothromb Time International Ratio 1.0 (0.9-1.1) Activated Partial Thromboplast Time 25 SEC (23-33) Sodium Level 140 MMOL/L (136-145) Potassium Level 3.6 MMOL/L (3.5-5.1) Chloride Level 103 MMOL/L (98-107) Carbon Dioxide Level 28 MMOL/L (21-32) Anion Gap 9 mmol/L (5-15) Blood Urea Nitrogen 22 mg/dL (7-18) H Creatinine 1.7 MG/DL (0.55-1.30) H Estimat Glomerular Filtration Rate mL/min (>60) Glucose Level 104 MG/DL (74-106) Calcium Level 8.9 MG/DL (8.5-10.1) Plan Problems: (1) Intractable pain Assessment & Plan: Pain mainly related to discomfort in the pelvis and abdomen from prolapse. Once prolapse was reduced patient did state that she felt better. Currently no nausea or vomiting. Labs identified. Exam stable. (2) Uterine prolapse Assessment & Plan: Uterine prolapse status post reduction at the bedside without complication. Patient symptoms improved since. Nursing staff instructed on care plan. Will reduce as necessary. Patient had very weak pelvic floor muscles and will likely prolapse when ambulatory or with minimal exertion on abdominal core muscles. Seems to be chronic and ongoing for some time now. Will plan for outpatient OCCUPATIONAL HEALTH MANAGER evaluation. Diet as tolerated. will follow with recs as per OB will need pessary Thank you Marcus Vincent October 30, 2018 16:01
--- NOTE | 2018-10-30 17:42 | NUR ---
CHARGE NURSE NOTE: Spoke with (enrollment services vice president). She will visit patient tomorrow afternoon.
--- NOTE | 2018-10-30 19:30 | NUR ---
HAND-OFF: Report given to ANABELLE Duarte.
--- NOTE | 2018-10-30 19:52 | NUR ---
NURSE NOTES: PATIENT IN BED, AWAKE, GARBLED SPEECH. UTERINE PROLAPSE IS VISIBLE. BED IN THE LOWEST POSITION. SIDERAILS ARE UP AND BED ALARM ON. CALL LIGHT IS WITHIN REACH. IV IN PLACE, RUNNING IV FLUIDS. WILL CONTINUE TO MONITOR.
[2018-10-30 20:37] VITALS: BP 125/96
[2018-10-30] MEDS: QUEtiapine 200mg tab ORAL SCH (20:57)
--- NOTE | 2018-10-30 22:35 | NUR ---
NURSE NOTES: PATIENT HAD ONE EPISODE VOMITING. LEFT MESSAGE FOR DR. NAVARRETE AND RECEIVED ORDER FOR ZOFRAN 4MG IVP PRN Q6HRS, ORDER CARRIED OUT. WILL CONTINUE TO MONITOR. Addendum: 10/31/18 at 0708 by JOSH QUINTANILLA RN RN PATIENT HAS NO MORE VOMITING AT THIS TIME.
[2018-10-31 00:25] VITALS: BP 130/87
--- NOTE | 2018-10-31 00:45 | Progress Note ---
DATE: 10/30/2018 The patient does have some dementia. The patient has uterus prolapse. The patient's uterus came back after was reduced by the surgeon. Stablehand has been consulted. We are waiting for the blood bank laboratory technician to see the patient for the uterus prolapse. The patient denies any significant pain. Vital signs are okay, normal at this point. Does have uterine prolapse. ASSESSMENT AND PLAN: Uterine prolapse. Waiting for the blood bank laboratory technician to see the patient. Despite surgeon's effort to reduce it manually, prolapse came back. Vitals are normal at this point, afebrile. The patient does have degenerative joint disease and organic brain syndrome. Psychiatry has also been consulted. Iasiah Vasquez M.D. DR: VIDHYA JOB#: [id number] CC:
--- NOTE | 2018-10-31 03:15 | Consultation ---
DATE OF CONSULTATION: 10/30/2018 CONSULTING PHYSICIAN: Dell Page M.D. HISTORY OF PRESENT ILLNESS: The patient is a 72-year-old female who has multiple medical problems including uterine prolapse, dementia, history of chronic pain. The patient was admitted due to abdominal pain and discomfort in the vaginal area. The patient has been uncooperative, aggressive, not following the staff redirection. During the evaluation, the patient is unable to provide any history, is easily agitated. PAST PSYCHIATRIST HISTORY: The patient has history of psychiatric disorder. The patient is on 2 antipsychotics including Zyprexa and Seroquel. She is on 3 antipsychotics including risperidone, Seroquel, and olanzapine. The patient is unable to provide any history including past psychiatric hospitalization for suicide attempt. PAST MEDICAL HISTORY: Includes uterine prolapse and chronic pain. ALLERGIES: No known drug allergies. SUBSTANCE ABUSE HISTORY: No known history of illicit drug use or alcohol. MENTAL STATUS EXAMINATION: The patient is alert, oriented times self only, minimally talkative. The patient is very restless and is easily agitated. the patient is pacing around the unit and is unable to follow commands. Thought process, there is a paucity of thought content. Thought content, no suicidal, or homicidal ideations. Her cognition is impaired. ASSESSMENT: [place] I Dementia with behavior disturbance, acute. Toxic encephalopathy. [place] II Deferred. [place] III Uterine prolapse. [place] IV Low. [place] V 10. PLAN: 1. We will discontinue the olanzapine. Discontinue the risperidone. Continue the Seroquel 400 mg at bedtime. Start the patient on Lexapro 10 mg in the morning. Continue the Ativan as needed. 2. Start the patient on Klonopin 1 mg by mouth at bedtime. 3. We will continue follow and readjust the medications. Dell Page M.D. DR: Georgi JOB#: [id number] CC:
--- NOTE | 2018-10-31 04:00 | NUR ---
NURSE NOTES: PATIENT ASLEEP, V/S STABLE.
[2018-10-31 04:32] VITALS: BP 123/70
--- NOTE | 2018-10-31 07:06 | NUR ---
HAND-OFF: Report given to LEONILA PINTO RN.
--- NOTE | 2018-10-31 07:27 | NUR ---
NURSE NOTES: Received report from ANABELLE Duarte. Pt in bed, resting, talkative, breakfast tray at bedside, no complaints of pain, no apparent distress noted, pt A/O x 1, garbled speech, call light within reach, bed in lowest position, bed alarm on.
[2018-10-31 08:00] VITALS: BP_SYST 100; BP_SYST 141; BP_DIAS 66; BP_DIAS 73
[2018-10-31] MEDS: Docusate 100mg cap ORAL SCH ×2 (08:19→18:02)
[2018-10-31] MEDS: Econazole 1% Cream 15gm TOPIC SCH ×2 (08:19→18:02)
[2018-10-31] MEDS: Aspirin EC 81mg tab ORAL SCH (08:19)
[2018-10-31 11:52] VITALS: BP 148/69
--- NOTE | 2018-10-31 15:55 | Surgery Progress Note ---
Surgery Progress Note Subjective Additional Comments no acute events. comfortable. prolapse again reduced. Objective Last 24 Hour Vital Signs Date Time Temp Pulse Resp B/P (MAP) Pulse Ox O2 Delivery O2 Flow Rate FiO2 10/31/18 11:52 97.5 82 18 148/69 (95) 95 10/31/18 09:32 Room Air 10/31/18 09:06 Room Air 10/31/18 08:19 79 141/66 10/31/18 08:00 98.5 79 16 141/66 (91) 95 10/31/18 04:32 98.2 76 18 123/70 (87) 94 10/31/18 00:25 98.7 76 18 130/87 (101) 95 10/30/18 22:05 Room Air 10/30/18 20:37 99.0 79 18 125/96 (106) 95 10/30/18 16:00 98.1 76 18 127/69 (88) 98 I&O Intake and Output 10/30/18 10/31/18 19:00 07:00 Intake Total 2560 ml Balance 2560 ml Intake Oral 360 ml IV Total 1000 ml Other 1200 ml # Voids 3 # Bowel Movements 3 Dressing: dry Cardiovascular: RSR Respiratory: clear Abdomen: soft, flat, non-tender, present bowel sounds, non-distended Extremities: no tenderness, no cyanosis Plan Problems: (1) Intractable pain Assessment & Plan: Pain mainly related to discomfort in the pelvis and abdomen from prolapse. Once prolapse was reduced patient did state that she felt better. Currently no nausea or vomiting. Labs identified. Exam stable. (2) Uterine prolapse Assessment & Plan: Uterine prolapse status post reduction at the bedside without complication. Patient symptoms improved since. Nursing staff instructed on care plan. Will reduce as necessary. Patient had very weak pelvic floor muscles and will likely prolapse when ambulatory or with minimal exertion on abdominal core muscles. Seems to be chronic and ongoing for some time now. Will plan for outpatient ENVIRONMENTAL SERVICES DIRECTOR evaluation. Diet as tolerated. will follow with recs as per OB will need pessary Thank you Marcus Vincent October 31, 2018 15:55
[2018-10-31 16:00] VITALS: BP 145/91
--- NOTE | 2018-10-31 16:54 | Consultation ---
Consult Note Consult Note GYNECOLOGY CONSULTATION NOTE CC: Uterine prolapse HPI: Patient is a 72yo with multiple medical comorbidites, most notably dementia and psychiatric disorder, admitted from SNF with complete uterovaginal prolapse. She presented with abdominal/pelvic pain and in the ED was noted to have a prolapsed uterus. The prolapse is easily reducible and has been reduced several times during the patient's stay. She currently denies pain. No bleeding noted. The patient's speech is slurred/unintelligible, thus her medical history was obtained via chart review. The patient has been agitated, uncooperative, and aggressive per chart review, however is amenable and cooperative today. PMH: Hyperlipidemia, chronic pain, mood disorder/psychosis, dementia, GERD PSH: Repair of upper extremity fracture Meds: Klonopin, aspirin, gabapentin, lorazepam, omeprazole, Lexapro, Seroquel, Crestor Allergies: NKDA OBHx: Unable to obtain, and no children listed in emergency contacts GYNHx: Unable to obtain. Prolapse noted at time of admission SocHx: Lives at half-way facility FamHx: Non-contributory VITALS: Tlast 98.4, BP 145/91, P 90, RR 18, O2 95% RA EXAM: Gen: NAD, Alert but unable to assess orientation HEENT: Poor dentition, MMM Neck: No obvious thyromegaly CV: No tachycardia Pulm: No wheezes, but intermittent moist cough Abd: Soft, NTND, obese Pelvic: Complete uterovaginal prolapse noted with possible cervical polyp at external os. No bleeding. Prolapse was easily reduced. Patient incontinent of urine and feces and both urinated and defecated at time of pessary placement. Ring with support pessary size 7 placed without complication, however pessary was expelled. Gelhorn pessary inserted (70mm), and patient was able to maintain pessary without complication. Ext: No calf TTP MSK: Unable to assess Labs: Test 10/29/18 06:15 10/30/18 05:36 White Blood Count 4.9 K/UL (4.8-10.8) 6.6 K/UL (4.8-10.8) Red Blood Count 4.66 M/UL (4.20-5.40) 4.33 M/UL (4.20-5.40) Hemoglobin 13.0 G/DL (12.0-16.0) 12.2 G/DL (12.0-16.0) Hematocrit 39.2 % (37.0-47.0) 36.2 % (37.0-47.0) Mean Corpuscular Volume 84 FL (80-99) 84 FL (80-99) Mean Corpuscular Hemoglobin 27.8 PG (27.0-31.0) 28.2 PG (27.0-31.0) Mean Corpuscular Hemoglobin Concent 33.0 G/DL (32.0-36.0) 33.7 G/DL (32.0-36.0) Red Cell Distribution Width 13.2 % (11.6-14.8) 13.1 % (11.6-14.8) Platelet Count 176 K/UL (150-450) 174 K/UL (150-450) Mean Platelet Volume 8.1 FL (6.5-10.1) 8.1 FL (6.5-10.1) Neutrophils (%) (Auto) 58.9 % (45.0-75.0) 63.4 % (45.0-75.0) Lymphocytes (%) (Auto) 31.4 % (20.0-45.0) 26.4 % (20.0-45.0) Monocytes (%) (Auto) 6.8 % (1.0-10.0) 7.7 % (1.0-10.0) Eosinophils (%) (Auto) 1.7 % (0.0-3.0) 1.4 % (0.0-3.0) Basophils (%) (Auto) 1.2 % (0.0-2.0) 1.0 % (0.0-2.0) Sodium Level 144 MMOL/L (136-145) 140 MMOL/L (136-145) Potassium Level 3.6 MMOL/L (3.5-5.1) 3.6 MMOL/L (3.5-5.1) Chloride Level 107 MMOL/L (98-107) 103 MMOL/L (98-107) Carbon Dioxide Level 29 MMOL/L (21-32) 28 MMOL/L (21-32) Anion Gap 8 mmol/L (5-15) 9 mmol/L (5-15) Blood Urea Nitrogen 14 mg/dL (7-18) 22 mg/dL (7-18) Creatinine 1.3 MG/DL (0.55-1.30) 1.7 MG/DL (0.55-1.30) Estimat Glomerular Filtration Rate mL/min (>60) mL/min (>60) Glucose Level 117 MG/DL (74-106) 104 MG/DL (74-106) Calcium Level 9.2 MG/DL (8.5-10.1) 8.9 MG/DL (8.5-10.1) Total Bilirubin 0.4 MG/DL (0.2-1.0) Aspartate Amino Transf (AST/SGOT) 21 U/L (15-37) Alanine Aminotransferase (ALT/SGPT) 23 U/L (12-78) Alkaline Phosphatase 126 U/L (46-116) Total Protein 7.7 G/DL (6.4-8.2) Albumin 3.5 G/DL (3.4-5.0) Globulin 4.2 g/dL Albumin/Globulin Ratio 0.8 (1.0-2.7) Prothrombin Time 10.6 SEC (9.30-11.50) Prothromb Time International Ratio 1.0 (0.9-1.1) Activated Partial Thromboplast Time 25 SEC (23-33) Imaging: None this admission Assessment/Plan 72yo with complete uterovaginal prolapse, psychosis, dementia, now s/p pessary fitting (Gellhorn size 70mm) - Uterovaginal prolapse reduced and pessary fit for patient - Gellhorn pessary (70mm) placed and did not expel after 15 minutes with patient bearing down - Patient was able to maintain pessary without issue or complaint - Recommend ordering Pessary for patient, to be placed on an outpatient basis - To obtain ordering instructions please call [phone] - Pessary order can take 2-3 weeks to arrive, and there is no indication to keep patient admitted during the expected wait time - Patient can be discharged home to await arrival of her pessary and can follow up with [facility] as an outpatient for insertion and intermittent cleaning Thank you for this interesting consult. Signed: Saira Shea MD [phone] Saira Shea M.D. October 31, 2018 16:54
--- NOTE | 2018-10-31 18:25 | NUR ---
NURSE NOTES: Left message for Jyoti Maya in CM regarding Dr. Shea recommendation for Gelhorn Pessary Ring at [address] Shea pessary ring needs to be ordered, will probably need to be paid for by insurance and credit card and pt can be discharged to wait the 2-3 weeks it takes for ring to be sent. Notified Jyoti all this information is in Dr. Shea note.
--- NOTE | 2018-10-31 19:11 | NUR ---
HAND-OFF: Report given to ANABELLE Cantrell.
--- NOTE | 2018-10-31 19:28 | NUR ---
NURSE NOTES: Received patient in bed, no acute distress noted, on room air, confused, disoriented, Chinese speaking only, call light is within reach, bed is in low position, locked and alarm is on. Will continue to monitor for safety and comfort.
[2018-10-31 20:00] VITALS: BP 145/78
[2018-10-31] MEDS: QUEtiapine 200mg tab ORAL SCH (20:45)
--- NOTE | 2018-10-31 20:46 | General Progress Note ---
Assessment/Plan Problem List: (1) Uterine prolapse ICD Codes: N81.4 - Uterovaginal prolapse, unspecified SNOMED: 68625718, 68657520 (2) Dementia ICD Codes: F03.90 - Unspecified dementia without behavioral disturbance SNOMED: 42187475 (3) Intractable pain ICD Codes: R52 - Pain, unspecified SNOMED: 97751592 Status: progressing Assessment/Plan: uterine prolapse afebrile obs ob /humidifier operator is consulted Subjective ROS Limited/Unobtainable: Yes Allergies: Coded Allergies: No Known Allergies (Unverified , 08/01/12) Objective Last 24 Hour Vital Signs Date Time Temp Pulse Resp B/P (MAP) Pulse Ox O2 Delivery O2 Flow Rate FiO2 10/31/18 16:00 98.4 90 18 145/91 (109) 95 10/31/18 11:52 97.5 82 18 148/69 (95) 95 10/31/18 09:32 Room Air 10/31/18 09:06 Room Air 10/31/18 08:19 79 141/66 10/31/18 08:00 98.5 79 16 141/66 (91) 95 10/31/18 04:32 98.2 76 18 123/70 (87) 94 10/31/18 00:25 98.7 76 18 130/87 (101) 95 10/30/18 22:05 Room Air Intake and Output 10/30/18 10/31/18 19:00 07:00 Intake Total 2560 ml Balance 2560 ml Intake Oral 360 ml IV Total 1000 ml Other 1200 ml # Voids 3 # Bowel Movements 3 Height (Feet): 5 Height (Inches): 5.00 Weight (Pounds): 200 Cardiovascular: normal rate Respiratory/Chest: lungs clear Abdomen: soft Isaiah Vasquez MD October 31, 2018 20:45
[2018-11-01 00:46] VITALS: BP 130/71
[2018-11-01 04:00] VITALS: BP 117/77
[2018-11-01 06:20] LABS: BASOPHILS % (AUTO) 0.6 % (0.0-2.0); EOSINOPHILS % (AUTO) 0.2 % (0.0-3.0); HEMATOCRIT 36.5 % (37.0-47.0); HEMOGLOBIN 12.3 G/DL (12.0-16.0); LYMPHOCYTES % (AUTO) 12.6 % (20.0-45.0); MEAN CORPUSCULAR VOLUME 84 FL (80-99); MONOCYTES % (AUTO) 8.1 % (1.0-10.0); NEUTROPHILS % (AUTO) 78.4 % (45.0-75.0); PLATELET COUNT 154 K/UL (150-450); RED BLOOD COUNT 4.34 M/UL (4.20-5.40); RED CELL DISTRIBUTION WIDTH 13.2 % (11.6-14.8); WHITE BLOOD COUNT 9.4 K/UL (4.8-10.8)
[2018-11-01 06:33] LABS: ANION GAP 9 mmol/L (5-15); BLOOD UREA NITROGEN 25 mg/dL (7-18); CALCIUM 8.2 MG/DL (8.5-10.1); CARBON DIOXIDE 31 MMOL/L (21-32); CHLORIDE 105 MMOL/L (98-107); CREATININE 1.6 MG/DL (0.55-1.30); POTASSIUM 3.2 MMOL/L (3.5-5.1); SODIUM 145 MMOL/L (136-145)
--- NOTE | 2018-11-01 06:50 | NUR ---
HAND-OFF: Report given to Rishi AHN.
--- NOTE | 2018-11-01 07:52 | NUR ---
NURSE NOTES: Patient awake, sami speaking; on room air, no sign of shortness of breath, no sign of distress; IV Left-Hand flushes well; bed at lowest position, side rails up x2, breaks engaged. call light within reach. will keep on monitoring.
[2018-11-01 08:00] VITALS: BP 135/75
--- NOTE | 2018-11-01 09:09 | NUR ---
NURSE NOTES: I received a discharge order from MD Vasquez, to discharge patient to [facility] [phone]; to resume home meds and discontinue hospital meds. Charge nurse, Irasema is aware.
[2018-11-01] MEDS: Aspirin EC 81mg tab ORAL SCH (09:57)
[2018-11-01] MEDS: Docusate 100mg cap ORAL SCH (10:02)
[2018-11-01] MEDS: Econazole 1% Cream 15gm TOPIC SCH (10:13)
--- NOTE | 2018-11-01 11:05 | NUR ---
NURSE NOTES: Patient's K 3.2. MD Vasquez is aware. Waiting for order.
[2018-11-01 12:00] VITALS: BP 126/63
--- NOTE | 2018-11-01 12:00 | Progress Note ---
DATE: 11/01/2018 SUBJECTIVE: The patient's mental condition is unchanged 00:12. The patient continues to be confused and disoriented. The patient is minimally talkative and 00:26. The patient is restless after the antipsychotics were minimized 00:35. The patient did not feel any signs of agitation, more calmer. MENTAL STATUS EXAMINATION: The patient is alert and oriented only to self, calmer today. No psychomotor agitation or retardation. Mood is neutral. Affect is constricted. Congruent with mood. Thought process is disorganized and tangential. Thought content, there is no suicidal or homicidal ideations. Memory, attention, and concentration are impaired. ASSESSMENT: 1. Dementia with behavior disturbance. 2. Acute toxic encephalopathy. PLAN: 1. We will continue the Seroquel and continue the Lexapro 10 mg in the morning as well as Klonopin 1 mg. 2. We will continue to follow and readjust the medication. Continue to monitor the patient's behavior. 3. The patient lacks capacity to leave against medical advice. Dell Page M.D. DR: Georgi JOB#: [id number] CC:
--- NOTE | 2018-11-01 15:31 | NUR ---
NURSE NOTES: Patient discharged to [facility]. Patient left the floor accompanied by [facility] personnel. I gave report to Desire at [facility]. IV access and Name tag removed upon discharge. Patient is stable upon discharge. Package given to ambulance personnel.
--- NOTE | 2018-11-02 13:42 | Discharge Summary ---
Discharge Summary Discharge Summary _ DATE OF ADMISSION: 10/28/2018 DATE OF DISCHARGE: 11/01/2018 DISCHARGED BY: Dr. Isaiah Desouza CONSULTANTS: Dr. Dell Vincent BRIEF HOSPITAL COURSE: Patient is a 72-year-old female, who presented to ED via EMS due to complaints of increased discomfort in the vaginal area. Patient reported to have a previous prolapsed uterus and appeared to be worsening. Patient herself has underlying dementia and was unable to provide full specific history. She denied any chest pain or shortness of breath. Denied any vomiting or diarrhea. She has medical history significant for hyperlipidemia, hypertension, GERD, and neuropathy. On evaluation at the ED, vital signs were stable. Blood work did not show any leukocytosis. Hemoglobin and hematocrit were stable. Electrolytes were normal. Ultrasound was not ordered as patient had clear signs of prolapse. Patient appeared uncomfortable and required acute intervention with pain medication. She was eventually admitted for evaluation of uterine prolapse and intractable pain. Surgeon was consulted. On examination, patient had large near full prolapse of uterus with drywall noted and external os seen. Prolapse was reduced at bedside without complication. Patient felt better. Patient was assessed to have very weak pelvic floor muscles and will likely prolapse when ambulatory or with minimal exertion of abdominal core muscles. The following day, uterus prolapsed again, and was reduced by surgeon. Uterus continued to prolapse when patient stands. It was again reduced at bedside several times. Patient was uncooperative and aggressive. She was not following staff redirection. Psychiatrist was consulted. She was diagnosed with dementia with behavioral disturbance. Olanzapine and risperidone were discontinued. She was started on Lexapro 10 mg every morning. She was continued on Seroquel 400 mg nightly. She was given Klonopin 1 mg nightly. Outpatient Psychiatrist was consulted. On examination patient had complete uterovaginal prolapse with possible cervical polyp at external loss. There was no bleeding. Prolapse was easily reduced. Patient was incontinent of urine and feces and both urinated and defecated at the time of pessary placement. Ring with support pessary size 7 was placed without complication, however, pessary was expelled. A Gellhorn pessary was then inserted and patient was able to maintain pessary without complication. Per easter bunny, recommended ordering pessary for patient to be placed as outpatient. Patient was cleared for discharge home as it could take 2 to 3 weeks for Pessary to arrive. She was recommended to follow-up with gynecology as an outpatient for insertion and intermittent cleaning. Patient was discharged home. FINAL DIAGNOSES: Complete uterovaginal prolapse status post pessary fitting (Gellhorn size 70 mm) Dementia with behavioral disturbance Acute toxic encephalopathy Intractable pain DISPOSITION: Patient was discharged to board and care. DISCHARGE MEDICATIONS: Refer to Discharge Medication List. DISCHARGE INSTRUCTIONS: Follow-up in 1-2 weeks. I have been assigned to complete a discharge summary on this account, I was not involved with the patient's management. Catalina Jasmine NP November 02, 2018 13:41
== END 2018-11-01 15:28 | disposition home or self-care (01) | DRG 760 ==
LOC: EDBD 12:04 → EMR 12:35 → 4E 12:52 → EDBEDREQ 13:16
PROC: 0UHG7GZ Insertion of Pessary into Vagina, Via Natural or Artificial Opening (ICD-10-PCS; principal; 2018-10-31)
DX: N81.3 Complete uterovaginal prolapse (principal); G92 Toxic encephalopathy; F03.91 Unspecified dementia, unspecified severity, with behavioral disturbance; E78.5 Hyperlipidemia, unspecified; F09 Unspecified mental disorder due to known physiological condition; K21.9 Gastro-esophageal reflux disease without esophagitis; Z79.82 Long term (current) use of aspirin; R32 Unspecified urinary incontinence; R15.9 Full incontinence of feces
CPT/HCPCS: 36415; 80048; 80053; 85025; 85610; 85730; 87081; 99285; J2405; J8499